=== PATIENT | female | born 1980 | race Caucasian/White ===

== ENCOUNTER 2019-04-26 11:29 | Emergency (ER) | payer MEDICAID, OTHER ==
[~2019-04-26] VITALS: Ht 162.6 cm; Wt 86.4 kg
[~2019-04-26 11:29] MED LIST: NOCURR
[2019-04-26 11:31] VITALS: BP 121/53
== END 2019-04-26 13:09 | disposition home or self-care (01) ==
LOC: EMS 11:31
DX: G51.0 Bell's palsy (principal)
CPT/HCPCS: 70450